=== PATIENT | male | born 1990 | race African-American/Black ===

== ENCOUNTER 2018-10-05 14:05 | Inpatient (IN) | payer OTHER ==
[2018-10-05 14:36] VITALS: BMI 28.7
--- NOTE | 2018-10-05 17:30 | HP ---
CIWA Score - Admission Criteria [facility] Guidelines: Admission for Medically Managed Detox: Requires at least one of the followin. CIWA greater than 12 2. Seizures within the past 24 hours 3. Delirium tremens within the past 24 hours 4. Hallucinations within the past 24 hours 5. Acute intervention needed for co occurring medical disorder 6. Acute intervention needed for co occurring psychiatric disorder 7. Severe withdrawal that cannot be handled at a lower level of care (continued vomiting, continued diarrhea, abnormal vital signs) requiring intravenous medication and/or fluids 8. Admission ROS S - HPI Chief Complaint: Seeking admission to Rehab Allergies/Adverse Reactions: Allergies Allergy/AdvReac Type Severity Reaction Status Date / Time No Known Allergies Allergy Verified 10/05/18 14:31 History of Present Illness: 28 years old male is seeking admission to Rehab. He reports that he is crack dependent. His urine was positive for cocaine and benzo. Patient reports that he is not dependent on either but they must have been additives to his crack. He has history of HIV+ and denies suicide attempt/ suicidal ideation at this time. Patient prefers to be called Janice Stacey due to his sexual orientation. He was seen by the counselor, Mr. Gt Pineda. - Ebola screening Have you traveled outside of the country in the last 21 days: No (N) Have you had contact with anyone from an Ebola affected area: No Do you have a fever: No - Review of Systems Constitutional: No Symptoms Reported EENT: reports: No Symptoms Reported Respiratory: reports: No Symptoms reported Cardiac: reports: No Symptoms Reported GI: reports: No Symptoms Reported : reports: No Symptoms Reported Musculoskeletal: reports: No Symptoms Reported Integumentary: reports: No Symptoms Reported Neuro: reports: No Symptoms reported Endocrine: reports: No Symptoms Reported Hematology: reports: No Symptoms Reported Psychiatric: reports: No Sypmtoms Reported, Mood/Affect Appropiate, Orientated x3 Other Systems: Reviewed and Negative Patient History - Patient Medical History Hx Anemia: No Hx Asthma: No Hx Chronic Obstructive Pulmonary Disease (COPD): No Hx Cancer: No Hx Cardiac Disorders: No Hx Congestive Heart Failure: No Hx Hypertension: No Hx Hypercholesterolemia: No Hx Pacemaker: No HX Cerebrovascular Accident: No Hx Seizures: No Hx Dementia: No Hx Diabetes: No Hx Gastrointestinal Disorders: No Hx Liver Disease: No Hx Genitourinary Disorders: No Hx Sexually Transmitted Disorders: No Hx Renal Disease (ESRD): No Hx Thyroid Disease: No Hx Human Immunodeficiency Virus (HIV): Yes Hx Hepatitis C: No Hx Depression: No Hx Suicide Attempt: No Hx Bipolar Disorder: No Hx Schizophrenia: No - Patient Surgical History Past Surgical History: No - PPD History Previous Implant?: Yes Documented Results: Negative w/o proof Implanted On Prior R Admission?: No PPD to be Administered?: Yes - Reproductive History Patient is a Female of Child Bearing Age (11 -55 yrs old): No (Male but prefers to be called Ms. Ibarra) - Smoking Cessation Smoking history: Current every day smoker Have you smoked in the past 12 months: Yes Aproximately how many cigarettes per day: 2 Hx Chewing Tobacco Use: No Initiated information on smoking cessation: Yes 'Breaking Loose' booklet given: 10/05/18 - Substance & Tx. History Hx Alcohol Use: No Hx Substance Use: Yes Substance Use Type: Cocaine Hx Substance Use Treatment: No (Patient denies) - Substances abused Crack Substance route: Smoking Frequency: 3-6 times per week Amount used: 1-2 BAGS Age of first use: 27 Date of last use: 10/05/18 Family Disease History - Family Disease History Family History: Denies Admission Physical Exam [facility] - Vital Signs Vital Signs: Vital Signs - 24 hr 10/05/18 14:29 Temperature 98.4 F Pulse Rate 102 H Respiratory 18 Rate Blood Pressure 155/87 - Physical General Appearance: Yes: Within Normal Limits HEENTM: Yes: Within Normal Limits Respiratory: Yes: Within Normal Limits, Lungs Clear, Normal Breath Sounds Neck: Yes: Supple Breast: Yes: Breast Exam Deferred Cardiology: Yes: Tachycardia Abdominal: Yes: Normal Bowel Sounds, Soft Genitourinary: Yes: Within Normal Limits Back: Yes: Normal Inspection Musculoskeletal: Yes: Within Normal Limits Extremities: Yes: Within Normal Limits Neurological: Yes: Within Normal Limits Integumentary: Yes: Within Normal Limits Lymphatic: Yes: Within Normal Limits - Diagnostic (1) Crack cocaine use Current Visit: Yes Status: Chronic (2) Nicotine dependence Current Visit: Yes Status: Chronic Qualifiers: Nicotine product type: cigarettes Substance use status: uncomplicated Qualified Code(s): F17.210 - Nicotine dependence, cigarettes, uncomplicated (3) HIV (human immunodeficiency virus infection) Current Visit: Yes Status: Chronic Cleared for Admission [facility] - Detox or Rehab [facility] Level of Care: Observation Bed Claeared for Rehab Admission: Yes Breathalyzer - Breathalyzer Breathalyzer: 0 Urine Drug Screen - Test Device Lot number: [id number] Expiration date: 07/06/20 - Control Is test valid?: Yes - Results Drug screen NEGATIVE: No Urine drug screen results: YOEL-Cocaine, BZO-Benzodiazepines Inpatient Rehab Admission - Rehab Decision to Admit Inpatient rehab admission?: Yes - Initial Determination Are CD services needed?: No Free of communicable disease: No Not in need of hospitalization: Yes - Rehab Admission Criteria Previous failed treatment: No Poor recovery environment: Yes Comorbidities: Yes Lacks judgement: No Patient is meeting Inpatient Rehab admission criteria:: Yes
[2018-10-05] MEDS ORDERED: IBUPROFEN 400 MG TABLET (FP) PO PRN (18:08)
[2018-10-05] MEDS ORDERED: MAGNESIUM HYDROX 2400MG/30ML ORAL SUSPENSION 30 ML CUP PO PRN (18:08)
[2018-10-05] MEDS ORDERED: MAGNESIUM CITRATE 300 ML BOTTLE PO PRN (18:08)
[2018-10-05] MEDS ORDERED: guaiFENesin 200 MG/10 ML 10 ML UNIT-DOSE CUPS PO PRN (18:08)
[2018-10-05] MEDS ORDERED: ACETAMINOPHEN 325 MG TABLET (FP) PO PRN (18:08)
[2018-10-05] MEDS ORDERED: MAG HYDROX/AL HYDROX/SIMETH 30 ML UNIT-DOSE CUP PO PRN (18:08)
[2018-10-05] MEDS ORDERED: LOPERAMIDE HCL 2 MG CAPSULE PO PRN (18:08)
[2018-10-05] MEDS ORDERED: MENTHOL/PHENOL 1 EACH UD MM PRN (18:08)
[2018-10-05] MEDS ORDERED: P-EPHED 60MG/TRIPROLIDI 2.5MG TABLET PO PRN (18:08)
[2018-10-05] MEDS: THIAMINE HCL 100 MG TABLET (FP) PO SCH (21:45)
[2018-10-05] MEDS: MELATONIN 5 MG TABLETS PO PRN (21:45)
[2018-10-06 09:27] LABS: ALBUMIN 3.4 g/dl (3.4-5.0); BILIRUBIN,TOTAL 0.2 mg/dL (0.2-1); BLOOD UREA NITROGEN 14.1 mg/dL (7-18); CALCIUM 9.3 mg/dL (8.5-10.1); CREATININE 1.2 mg/dL (0.55-1.3); POTASSIUM 4.1 mmol/L (3.5-5.1); TOT PROT 8.4 g/dl (6.4-8.2)
[2018-10-06 09:38] LABS: HEMATOCRIT 40.4 % (35.4-49); HEMOGLOBIN 13.6 GM/dL (11.7-16.9); MCH 31.6 pg (25.7-33.7); MCHC 33.7 g/dl (32.0-35.9); MEAN CELL VOLUME 93.8 fl (80-96); MEAN PLT VOLUME 8.4 fl (7.5-11.1); PLATELET COUNT 224 K/MM3 (134-434); RDW 14.4 % (11.9-15.9); WHITE BLOOD COUNT 4.7 K/mm3 (4.0-10.0)
[2018-10-06] MEDS: PRENATAL VITAMINS W/ FOLIC ACID TABLET (FP) PO SCH (10:22)
[2018-10-06] MEDS: NICOTINE 14 MG/24 HOURS TOPICAL PATCH TD SCH (10:22)
[2018-10-06 11:21] LABS: URINE APPEARANCE CLEAR; URINE BILIRUBIN NEGATIVE (NEGATIVE); URINE COLOR YELLOW; URINE GLUCOSE (UA) NEGATIVE (NEGATIVE); URINE KETONE NEGATIVE (NEGATIVE); URINE LEUK ESTERASE NEGATIVE (NEGATIVE); URINE NITRITE NEGATIVE (NEGATIVE); URINE PROTEIN NEGATIVE (NEGATIVE); URINE UROBILINOGEN 0.2 mg/dL (0.2-1.0)
[2018-10-06] MEDS: THIAMINE HCL 100 MG TABLET (FP) PO SCH (23:16)
[2018-10-06] MEDS: MELATONIN 5 MG TABLETS PO PRN (23:47)
[2018-10-07] MEDS: NICOTINE 14 MG/24 HOURS TOPICAL PATCH TD SCH (09:43)
[2018-10-07] MEDS: NICOTINE POLACRILEX 2 MG GUM BC PRN (09:43)
[2018-10-07] MEDS: PRENATAL VITAMINS W/ FOLIC ACID TABLET (FP) PO SCH (09:43)
[2018-10-07] MEDS: THIAMINE HCL 100 MG TABLET (FP) PO SCH (23:42)
[2018-10-08] MEDS: NICOTINE 14 MG/24 HOURS TOPICAL PATCH TD SCH (10:17)
[2018-10-08] MEDS: PRENATAL VITAMINS W/ FOLIC ACID TABLET (FP) PO SCH (10:17)
[2018-10-08] MEDS: THIAMINE HCL 100 MG TABLET (FP) PO SCH (21:34)
[2018-10-08] MEDS: MELATONIN 5 MG TABLETS PO PRN (21:34)
[2018-10-08] MEDS: NICOTINE POLACRILEX 2 MG GUM BC PRN (21:34)
[2018-10-09 06:46] VITALS: BP 140/71; PULSE 64; TEMP 98.1
[2018-10-09] MEDS: PRENATAL VITAMINS W/ FOLIC ACID TABLET (FP) PO SCH (09:46)
[2018-10-09] MEDS: NICOTINE 14 MG/24 HOURS TOPICAL PATCH TD SCH (09:46)
[2018-10-09] MEDS: NICOTINE POLACRILEX 2 MG GUM BC PRN (09:46)
--- NOTE | 2018-10-09 11:01 | DS ---
[facility] Rehab Discharge Summary - [facility] Rehab Discharge Summary Admission Date: 10/05/18 Discharge Date: 10/09/18 - History Present History: Cocaine dependence Additional Comments: Patient is leaving to secure his housing. He states that he will come back for re-admission to rehab. He does not have an aftercare referral. Pertinent Past History: 28 years old male who reported that he is crack dependent unpon admission. His urine was positive for cocaine and benzo. Patient reports that he is not dependent on either but they must have been additives to his crack. He has history of HIV+ and denies suicide attempt/ suicidal ideation at this time. Patient prefers to be called Ms. Ibarra due to his sexual orientation. - Discharge Physical Exam Vital Signs: Vital Signs Temperature 98.1 F 10/09/18 06:45 Pulse Rate 64 10/09/18 06:45 Respiratory Rate 18 10/09/18 06:45 Blood Pressure 140/71 10/09/18 06:45 O2 Sat by Pulse Oximetry (%) Pertinent Admission Physical Exam Findings: General Appearance: No apparent distress HEENTM: Normocephalic, PERRLA Respiratory: Lungs Clear, Neck:Supple Cardiology: S1 S2 audible Abdominal: +Bowel Sounds, Musculoskeletal: full weight bearing, full ROM, steady gait. Neurological: CN 2-12 intact, no neurological deficits noted muscle strength 5/5 Integumentary: color consistent throughout trunk and extremities Lymphatic: no palpable lymph nodes - Treatment Discharge Condition: Discharge condition good Hospital Course: Patient was admitted to rehab on 10/05, leaving today. He attended groups, was adherent to the treatment plan and medication regimen. Patient did not take Bictarvy while in rehab. He states that he does not have a prescription, although the pharmacy report indicates he received a 1 month prescription on . Patient had no acute or urgent medical problems while in detox and has no medical or psychiatric issues upon discharge. - Medication Discharge Medications: Ambulatory Orders Bictegrav/Emtricit/Tenofov Ala [Biktarvy 50-200-25 mg Tablet] 1 each PO DAILY - Medication-Assisted Treatment (MAT) Medication-Assisted Treatment (MAT): No - Discharge Instructions Diet, activity, other medical instructions: Diet: as tolerated Activity: as tolerated Other medical instructions: Please see HIV provider for assessment and new prescription of Bictarvy, if appropriate. Please bring Bictarvy back with you when and if you need further rehab services. - Diagnosis (1) Crack cocaine use Current Visit: Yes Status: Chronic (2) HIV (human immunodeficiency virus infection) Current Visit: Yes Status: Chronic Qualifiers: HIV symptom status: asymptomatic Qualified Code(s): Z21 - Asymptomatic human immunodeficiency virus [HIV] infection status - Follow-up Referral Minutes to complete discharge: 20 - AMA Additional Comments: Patient is leaving before completing rehab because he needs to secure his housing. Encouraged to seek aftercare if he does not seek readmission and encouraged to follow up with his medical provider.
== END 2018-10-09 11:10 | disposition home or self-care (01) | DRG 774 ==
LOC: YASAS 14:05 → Y3W 17:42 → UNDOADMIN 17:42 → Y3W 17:53 → UNDODISIN 10-09 11:10
PROVIDERS: ADMIT Neuromusculoskeletal Medicine & OMM; ATTEND Neuromusculoskeletal Medicine & OMM
PROC: HZ2ZZZZ Detoxification Services for Substance Abuse Treatment (ICD-10-PCS; principal; 2018-10-05)
DX: F14.20 Cocaine dependence, uncomplicated (principal); F17.210 Nicotine dependence, cigarettes, uncomplicated; Z21 Asymptomatic human immunodeficiency virus [HIV] infection status
CPT/HCPCS: 36415; 80053; 81003; 85027; 86593

== ENCOUNTER 2020-07-30 14:20 | Inpatient (IN) | payer OTHER ==
[2020-07-30 15:53] VITALS: BMI 33.2
[2020-07-30] MEDS ORDERED: MENTHOL/PHENOL 1 EACH UD MM PRN (16:04)
[2020-07-30] MEDS ORDERED: ACETAMINOPHEN 325 MG TABLET (FP) PO PRN (16:04)
[2020-07-30] MEDS ORDERED: ONDANSETRON *ODT* 4 MG TABLET SL PRN (16:04)
[2020-07-30] MEDS ORDERED: BISMUTH SUBSALICYLATE 524 MG/30 ML PO PRN (16:04)
[2020-07-30] MEDS ORDERED: NICOTINE POLACRILEX 2 MG GUM BUC PRN (16:04)
[2020-07-30] MEDS ORDERED: MAG HYDROX/AL HYDROX/SIMETH 30 ML UNIT-DOSE CUP PO PRN (16:04)
[2020-07-30] MEDS ORDERED: LORazepam 1 MG TABLET PO PRN (16:04)
[2020-07-30] MEDS ORDERED: MAGNESIUM CITRATE 300 ML BOTTLE PO PRN (16:04)
[2020-07-30] MEDS ORDERED: MAGNESIUM HYDROX 2400MG/30ML ORAL SUSPENSION 30 ML CUP PO PRN (16:04)
[2020-07-30] MEDS: LORazepam 2 MG TABLET PO SCH ×2 (19:21→22:32)
[2020-07-30] MEDS: hydrOXYzine PAMOATE 25 MG CAPSULE (FP) PO SCH ×2 (19:22→22:33)
[2020-07-30] MEDS: THIAMINE HCL 100 MG TABLET (FP) PO SCH (22:33)
[2020-07-30] MEDS: ACETAMINOPHEN 325 MG TABLET (FP) PO PRN (22:33)
[2020-07-30] MEDS: MELATONIN 5 MG TABLETS PO SCH (22:33)
[2020-07-31] MEDS: hydrOXYzine PAMOATE 25 MG CAPSULE (FP) PO SCH (07:19)
[2020-07-31] MEDS: LORazepam 2 MG TABLET PO SCH ×4 (07:19→22:47)
[2020-07-31] MEDS ORDERED: hydrOXYzine PAMOATE 25 MG CAPSULE (FP) PO PRN (07:45)
[2020-07-31] MEDS ORDERED: BICTEGRAV/EMTRICIT/TENOFOV (BIKTARVY) 50-200-25 MG TABLET PO SCH (10:00)
[2020-07-31] MEDS: PRENATAL VITAMINS W/ FOLIC ACID TABLET (FP) PO SCH (10:42)
[2020-07-31] MEDS: METHOCARBAMOL 500 MG TABLET PO PRN (10:43)
[2020-07-31 11:22] LABS: CALCIUM 9.1 mg/dL (8.5-10.1)
[2020-07-31 11:23] LABS: ALBUMIN 3.4 g/dl (3.4-5.0); BLOOD UREA NITROGEN 8.1 mg/dL (7-18)
[2020-07-31 11:27] LABS: CREATININE 0.8 mg/dL (0.55-1.3)
[2020-07-31 11:28] LABS: BILIRUBIN,TOTAL 0.3 mg/dL (0.2-1)
[2020-07-31 11:44] LABS: HEMATOCRIT 37.3 % (35.4-49); HEMOGLOBIN 12.4 GM/dL (11.7-16.9); MCH 29.5 pg (25.7-33.7); MCHC 33.1 g/dl (32.0-35.9); MEAN CELL VOLUME 89.2 fl (80-96); MEAN PLT VOLUME 8.9 fl (7.5-11.1); PLATELET COUNT 242 10^3/uL (134-434); RBC 4.18 M/mm3 (4.00-5.60); RDW 15.6 % (11.9-15.9); WHITE BLOOD COUNT 4.3 K/mm3 (4.0-10.0)
[2020-07-31] MEDS: THIAMINE HCL 100 MG TABLET (FP) PO SCH (22:48)
[2020-07-31] MEDS: MELATONIN 5 MG TABLETS PO SCH (22:48)
[2020-08-01] MEDS: LORazepam 1 MG TABLET PO SCH ×4 (07:12→22:36)
[2020-08-01] MEDS: BICTEGRAV/EMTRICIT/TENOFOV (BIKTARVY) 50-200-25 MG TABLET PO SCH (09:09)
[2020-08-01] MEDS: PRENATAL VITAMINS W/ FOLIC ACID TABLET (FP) PO SCH (10:34)
[2020-08-01] MEDS: THIAMINE HCL 100 MG TABLET (FP) PO SCH (22:13)
[2020-08-01] MEDS: MELATONIN 5 MG TABLETS PO SCH (22:13)
[2020-08-02] MEDS ORDERED: LORazepam 0.5 MG TABLET PO PRN
[2020-08-02] MEDS: LORazepam 0.5 MG TABLET PO SCH ×4 (06:07→22:20)
[2020-08-02] MEDS: BICTEGRAV/EMTRICIT/TENOFOV (BIKTARVY) 50-200-25 MG TABLET PO SCH ×2 (07:58→08:42)
[2020-08-02] MEDS: PRENATAL VITAMINS W/ FOLIC ACID TABLET (FP) PO SCH (10:41)
[2020-08-02] MEDS: ACETAMINOPHEN 325 MG TABLET (FP) PO PRN ×2 (12:46→17:53)
[2020-08-02] MEDS: THIAMINE HCL 100 MG TABLET (FP) PO SCH (22:20)
[2020-08-02] MEDS: MELATONIN 5 MG TABLETS PO SCH (22:20)
[2020-08-02] MEDS: IBUPROFEN 400 MG TABLET (FP) PO PRN (22:22)
[2020-08-02] MEDS: METHOCARBAMOL 500 MG TABLET PO PRN (22:23)
[2020-08-03] MEDS ORDERED: LORazepam 0.5 MG TABLET PO ONE (05:00)
[2020-08-03] MEDS: METHOCARBAMOL 500 MG TABLET PO PRN (06:09)
[2020-08-03] MEDS: IBUPROFEN 400 MG TABLET (FP) PO PRN (06:09)
[2020-08-03] MEDS: BICTEGRAV/EMTRICIT/TENOFOV (BIKTARVY) 50-200-25 MG TABLET PO SCH (07:12)
[2020-08-03] MEDS: PRENATAL VITAMINS W/ FOLIC ACID TABLET (FP) PO SCH (09:19)
[2020-08-03 12:49] VITALS: BP 126/59; PULSE 84; TEMP 96.4
== END 2020-08-03 15:23 | disposition other institution (70) | DRG 774 ==
LOC: YASAS 14:20 → Y3N 16:30
PROVIDERS: ADMIT Allergy & Immunology; ATTEND Allergy & Immunology
PROC: HZ2ZZZZ Detoxification Services for Substance Abuse Treatment (ICD-10-PCS; principal; 2020-07-30)
DX: F10.230 Alcohol dependence with withdrawal, uncomplicated (principal); F14.20 Cocaine dependence, uncomplicated; F17.210 Nicotine dependence, cigarettes, uncomplicated; F64.0 Transsexualism; Z21 Asymptomatic human immunodeficiency virus [HIV] infection status; R26.89 Other abnormalities of gait and mobility; Z99.89 Dependence on other enabling machines and devices; R63.5 Abnormal weight gain; Z68.33 Body mass index [BMI] 33.0-33.9, adult; Z87.19 Personal history of other diseases of the digestive system; Z86.69 Personal history of other diseases of the nervous system and sense organs; Z86.19 Personal history of other infectious and parasitic diseases
CPT/HCPCS: 36415; 80053; 85027; 86593; 86780; C9803; U0003; U0005

== ENCOUNTER 2020-08-03 15:25 | Inpatient (IN) | payer OTHER ==
[2020-08-03] MEDS ORDERED: MENTHOL/PHENOL 1 EACH UD MM PRN (15:49)
[2020-08-03] MEDS ORDERED: MAGNESIUM CITRATE 300 ML BOTTLE PO PRN (15:49)
[2020-08-03] MEDS ORDERED: MAG HYDROX/AL HYDROX/SIMETH 30 ML UNIT-DOSE CUP PO PRN (15:49)
[2020-08-03] MEDS ORDERED: guaiFENesin 200 MG/10 ML 10 ML UNIT-DOSE CUPS PO PRN (15:49)
[2020-08-03] MEDS ORDERED: ACETAMINOPHEN 325 MG TABLET (FP) PO PRN (15:49)
[2020-08-03] MEDS ORDERED: MAGNESIUM HYDROX 2400MG/30ML ORAL SUSPENSION 30 ML CUP PO PRN (15:49)
[2020-08-03] MEDS ORDERED: P-EPHED 60MG/TRIPROLIDI 2.5MG TABLET PO PRN (15:49)
[2020-08-03] MEDS ORDERED: LOPERAMIDE HCL 2 MG CAPSULE PO PRN (15:49)
[2020-08-03] MEDS: THIAMINE HCL 100 MG TABLET (FP) PO SCH (21:31)
[2020-08-03] MEDS: MELATONIN 5 MG TABLETS PO SCH (21:31)
[2020-08-04] MEDS: hydrOXYzine PAMOATE 25 MG CAPSULE (FP) PO PRN ×2 (00:56→10:30)
[2020-08-04] MEDS: BICTEGRAV/EMTRICIT/TENOFOV (BIKTARVY) 50-200-25 MG TABLET PO SCH (08:50)
[2020-08-04] MEDS: PRENATAL VITAMINS W/ FOLIC ACID TABLET (FP) PO SCH (10:30)
[2020-08-04] MEDS: MELATONIN 5 MG TABLETS PO SCH (21:37)
[2020-08-04] MEDS: THIAMINE HCL 100 MG TABLET (FP) PO SCH (21:37)
[2020-08-04] MEDS: IBUPROFEN 400 MG TABLET (FP) PO PRN (21:38)
[2020-08-05] MEDS ORDERED: MASKS NR ONE (06:10)
[2020-08-05] MEDS: PRENATAL VITAMINS W/ FOLIC ACID TABLET (FP) PO SCH (10:23)
[2020-08-05] MEDS: hydrOXYzine PAMOATE 25 MG CAPSULE (FP) PO PRN (10:23)
[2020-08-05] MEDS: IBUPROFEN 400 MG TABLET (FP) PO PRN ×2 (10:24→21:14)
[2020-08-05] MEDS: BICTEGRAV/EMTRICIT/TENOFOV (BIKTARVY) 50-200-25 MG TABLET PO SCH (10:26)
[2020-08-05] MEDS: THIAMINE HCL 100 MG TABLET (FP) PO SCH (21:13)
[2020-08-05] MEDS: MELATONIN 5 MG TABLETS PO SCH (21:14)
[2020-08-06] MEDS: hydrOXYzine PAMOATE 25 MG CAPSULE (FP) PO PRN (10:06)
[2020-08-06] MEDS: PRENATAL VITAMINS W/ FOLIC ACID TABLET (FP) PO SCH (10:06)
[2020-08-06] MEDS: BICTEGRAV/EMTRICIT/TENOFOV (BIKTARVY) 50-200-25 MG TABLET PO SCH (10:06)
[2020-08-06] MEDS: IBUPROFEN 400 MG TABLET (FP) PO PRN ×2 (10:06→21:33)
[2020-08-06] MEDS: MELATONIN 5 MG TABLETS PO SCH (21:29)
[2020-08-06] MEDS: THIAMINE HCL 100 MG TABLET (FP) PO SCH (21:29)
[2020-08-07] MEDS: BICTEGRAV/EMTRICIT/TENOFOV (BIKTARVY) 50-200-25 MG TABLET PO SCH (08:50)
[2020-08-07] MEDS: PRENATAL VITAMINS W/ FOLIC ACID TABLET (FP) PO SCH (10:35)
[2020-08-07] MEDS ORDERED: KETOROLAC TROMETHAMINE 15 MG/ML VIAL IM ONE (14:00)
[2020-08-07] MEDS: THIAMINE HCL 100 MG TABLET (FP) PO SCH (21:11)
[2020-08-07] MEDS: MELATONIN 5 MG TABLETS PO SCH (21:11)
[2020-08-07] MEDS: IBUPROFEN 400 MG TABLET (FP) PO PRN (21:12)
[2020-08-08] MEDS: BICTEGRAV/EMTRICIT/TENOFOV (BIKTARVY) 50-200-25 MG TABLET PO SCH (08:50)
[2020-08-08] MEDS: PRENATAL VITAMINS W/ FOLIC ACID TABLET (FP) PO SCH (10:15)
[2020-08-08] MEDS: IBUPROFEN 400 MG TABLET (FP) PO PRN ×2 (11:38→21:42)
[2020-08-08] MEDS: NICOTINE POLACRILEX 2 MG GUM BUC PRN (15:44)
[2020-08-08] MEDS: MELATONIN 5 MG TABLETS PO SCH (21:41)
[2020-08-08] MEDS: THIAMINE HCL 100 MG TABLET (FP) PO SCH (21:41)
[2020-08-08] MEDS: hydrOXYzine PAMOATE 25 MG CAPSULE (FP) PO PRN (23:43)
[2020-08-09] MEDS: IBUPROFEN 400 MG TABLET (FP) PO PRN (08:57)
[2020-08-09] MEDS: hydrOXYzine PAMOATE 25 MG CAPSULE (FP) PO PRN (08:57)
[2020-08-09] MEDS: BICTEGRAV/EMTRICIT/TENOFOV (BIKTARVY) 50-200-25 MG TABLET PO SCH (08:58)
[2020-08-09] MEDS ORDERED: METHOCARBAMOL 500 MG TABLET PO ONE ×2 (09:45→18:20)
[2020-08-09] MEDS: PRENATAL VITAMINS W/ FOLIC ACID TABLET (FP) PO SCH (10:09)
[2020-08-09] MEDS: MELATONIN 5 MG TABLETS PO SCH (23:29)
[2020-08-09] MEDS: THIAMINE HCL 100 MG TABLET (FP) PO SCH (23:29)
[2020-08-10] MEDS: PRENATAL VITAMINS W/ FOLIC ACID TABLET (FP) PO SCH (09:56)
[2020-08-10] MEDS: hydrOXYzine PAMOATE 25 MG CAPSULE (FP) PO PRN (09:57)
[2020-08-10] MEDS: NICOTINE POLACRILEX 2 MG GUM BUC PRN ×3 (09:57→17:03)
[2020-08-10] MEDS: BICTEGRAV/EMTRICIT/TENOFOV (BIKTARVY) 50-200-25 MG TABLET PO SCH (09:57)
[2020-08-10] MEDS: IBUPROFEN 400 MG TABLET (FP) PO PRN (17:02)
[2020-08-10] MEDS: THIAMINE HCL 100 MG TABLET (FP) PO SCH (21:30)
[2020-08-10] MEDS: MELATONIN 5 MG TABLETS PO SCH (21:30)
[2020-08-11] MEDS: IBUPROFEN 400 MG TABLET (FP) PO PRN (06:29)
[2020-08-11 07:05] VITALS: BP 162/96; PULSE 79; TEMP 97.5
[2020-08-11] MEDS: BICTEGRAV/EMTRICIT/TENOFOV (BIKTARVY) 50-200-25 MG TABLET PO SCH (07:22)
[2020-08-11] MEDS: NICOTINE POLACRILEX 2 MG GUM BUC PRN ×3 (07:22→21:10)
[2020-08-11] MEDS: PRENATAL VITAMINS W/ FOLIC ACID TABLET (FP) PO SCH (10:03)
[2020-08-11] MEDS: MELATONIN 5 MG TABLETS PO SCH (21:10)
[2020-08-11] MEDS: THIAMINE HCL 100 MG TABLET (FP) PO SCH (21:10)
[2020-08-12] MEDS: IBUPROFEN 400 MG TABLET (FP) PO PRN (06:47)
[2020-08-12] MEDS: BICTEGRAV/EMTRICIT/TENOFOV (BIKTARVY) 50-200-25 MG TABLET PO SCH (08:30)
[2020-08-12] MEDS: hydrOXYzine PAMOATE 25 MG CAPSULE (FP) PO PRN (09:55)
[2020-08-12] MEDS: PRENATAL VITAMINS W/ FOLIC ACID TABLET (FP) PO SCH (09:55)
== END 2020-08-12 10:10 | disposition home or self-care (01) | DRG 772 ==
LOC: YASAS 15:25 → Y3W 15:26
PROVIDERS: ADMIT Allergy & Immunology; ATTEND Allergy & Immunology
PROC: HZ42ZZZ Group Counseling for Substance Abuse Treatment, Cognitive-Behavioral (ICD-10-PCS; principal; 2020-08-03)
DX: F10.20 Alcohol dependence, uncomplicated (principal); F14.20 Cocaine dependence, uncomplicated; F17.210 Nicotine dependence, cigarettes, uncomplicated; F64.0 Transsexualism; Z21 Asymptomatic human immunodeficiency virus [HIV] infection status; M79.671 Pain in right foot; G89.29 Other chronic pain; R26.2 Difficulty in walking, not elsewhere classified; Z99.89 Dependence on other enabling machines and devices; Z87.890 Personal history of sex reassignment; Z86.19 Personal history of other infectious and parasitic diseases

== ENCOUNTER 2020-08-09 20:19 | Emergency (ER) | payer OTHER ==
[2020-08-09 20:49] VITALS: BMI 30.7
[2020-08-09] MEDS ORDERED: ACETAMINOPHEN 325 MG TABLET (FP) PO ONE (21:56)
[2020-08-09] MEDS ORDERED: ACETAMINOPHEN WITH CODEINE 300MG/30MG TABLET PO ONE (22:55)
[2020-08-09 22:56] LABS: BASO % 0.8 % (0-2.0); EOS % 1.4 % (0-4.5); HEMATOCRIT 36.7 % (35.4-49); HEMOGLOBIN 12.5 GM/dL (11.7-16.9); LYMPH % 38.2 % (8-40); MEAN CELL VOLUME 88.1 fl (80-96); MEAN PLT VOLUME 8.3 fl (7.5-11.1); MONO % 10.4 % (3.8-10.2); NEUT % 49.2 % (42.8-82.8); PLATELET COUNT 216 10^3/uL (134-434); RBC 4.16 M/mm3 (4.00-5.60); RDW 15.3 % (11.9-15.9); WHITE BLOOD COUNT 7.5 K/mm3 (4.0-10.0)
[2020-08-09] MEDS ORDERED: ACETAMINOPHEN WITH CODEINE 300MG/30MG TABLET ONE (22:57)
[2020-08-09 23:17] LABS: CALCIUM 8.9 mg/dL (8.5-10.1)
[2020-08-09 23:18] LABS: ALBUMIN 3.6 g/dl (3.4-5.0); BLOOD UREA NITROGEN 10.3 mg/dL (7-18)
[2020-08-09 23:21] LABS: CREATININE 0.9 mg/dL (0.55-1.3)
[2020-08-09 23:23] LABS: BILIRUBIN,TOTAL 0.2 mg/dL (0.2-1); TOT PROT 8.8 g/dl (6.4-8.2)
[2020-08-10] MEDS ORDERED: oxyCODONE HCL 5 MG TABLET PO ONE (02:20)
[2020-08-10] MEDS ORDERED: oxyCODONE HCL 5 MG TABLET ONE (02:22)
[2020-08-10] MEDS ORDERED: KETOROLAC TROMETHAMINE 30 MG/1 ML VIAL IM ONE (02:31)
[2020-08-10] MEDS ORDERED: KETOROLAC TROMETHAMINE 30 MG/1 ML VIAL ONE (03:01)
[2020-08-10 06:21] VITALS: TEMP 98.1
[2020-08-10 07:39] VITALS: BP 109/67; PULSE 74
== END 2020-08-10 07:45 | disposition home or self-care (01) ==
LOC: JER 20:19
PROC: 3E0233Z Introduction of Anti-inflammatory into Muscle, Percutaneous Approach (ICD-10-PCS; principal; 2020-08-10)
DX: R22.41 Localized swelling, mass and lump, right lower limb (principal)
CPT/HCPCS: 36415; 73700-TC-RT; 80053; 85025; 85651; 86140; 87040; 93971-TC; 99284-25